=== PATIENT | male | born 1960 | race Caucasian/White ===

== ENCOUNTER 2017-09-14 22:28 | Emergency (ER) | payer MEDICARE, MEDICAID ==
[2017-09-14 22:33] VITALS: BP 145/116
[2017-09-14] MEDS ORDERED: Acetaminophen 325 MG Tab PO ONE (22:48)
--- NOTE | 2017-09-14 23:22 | EDM.PDOC ---
ED HPI GENERAL MEDICAL PROBLEM - General Chief Complaint: Head Injury Stated Complaint: CAME BY AMBULANCE Time Seen by Provider: 09/14/17 22:30 Source of Information: Reports: EMS, Other (C staff aide) History Limitations: Reports: Language Barrier (Patient cognitively impaired and nonverbal) - History of Present Illness INITIAL COMMENTS - FREE TEXT/NARRATIVE: found lying on floor by bed, Staff do not believe there was any loss of consciousness. Staff concerned that did not seem to be walking as well and acting that something hurt so called 911 - Related Data Allergies Allergy/AdvReac Type Severity Reaction Status Date / Time No Known Allergies Allergy Verified 09/14/17 22:37 Home Meds: Home Meds Albuterol [Proventil Neb Soln] 0.63 mg NEB QIDRT PRN 12/12/16 [History] Docusate Sodium [Colace] 100 mg PO BID PRN 12/12/16 [History] Magnesium Hydroxide [Milk of Magnesia] 30 ml PO DAILY PRN 12/12/16 [History] Miconazole Nitrate [Lotrimin AF] 150 gm TP BID PRN 12/12/16 [History] clonazePAM [Clonazepam] 0.5 mg PO DAILY 12/12/16 [History] clonazePAM [Klonopin] 0.75 mg PO BEDTIME 12/12/16 [History] lamoTRIgine [Lamotrigine] 300 mg PO BID 12/12/16 [History] risperiDONE [risperiDONE] 0.25 mg PO TID 12/12/16 [History] Past Medical History - Past Health History Medical/Surgical History: Denies Medical/Surgical History Gastrointestinal History: Reports: Chronic Constipation Neurological History: Reports: Seizure Other Neuro History: devere mental retardation Psychiatric History: Reports: ADHD, Bipolar Social & Family History - Family History Family Medical History: Unobtainable - Tobacco Use Smoking Status *Q: Never Smoker Second Hand Smoke Exposure: No - Caffeine Use Caffeine Use: Reports: None - Recreational Drug Use Recreational Drug Use: No ED ROS GENERAL - Review of Systems Review Of Systems: ROS reveals no pertinent complaints other than HPI. ED EXAM, HEAD INJURY - Physical Exam Exam: See Below Exam Limited By: Language Barrier General Appearance: Alert, No Apparent Distress Head: Atraumatic, Normocephalic Nexus Criteria: No: Posterior, Midline Cervical Tenderness, Altered Level of Consciousness Eyes: Bilateral Eye: EOMI, PERRL Ears: Normal External Exam Nose: Normal Inspection, Normal Mucousa Course - Vital Signs Last Recorded V/S: Last Vital Signs Temp 101.3 F H 09/14/17 23:35 Pulse 122 H 09/14/17 22:28 Resp 20 09/14/17 22:28 BP 145/116 H 09/14/17 22:28 Pulse Ox 93 L 09/14/17 22:28 - Orders/Labs/Meds Meds: Medications Discontinued Medications Generic Name Dose Route Start Last Admin Trade Name Valerie PRN Reason Stop Dose Admin Acetaminophen 650 mg 09/14/17 22:48 09/14/17 22:54 Tylenol PO 09/14/17 22:49 650 mg NOW ONE Administration Phenazopyridine HCl 95 mg 09/14/17 23:26 Urinary Pain Relief PO 09/14/17 23:27 ONETIME ONE Departure - Departure Time of Disposition: 23:19 Disposition: DC/Tfer to [facility] Condition: Good Clinical Impression: Fall from bed Qualifiers: Encounter type: initial encounter Qualified Code(s): W06.XXXA - Fall from bed, initial encounter - Discharge Information Instructions: Head Injury, Adult, [id number] Referrals: PCP,Unobtain [Primary Care Provider] - Forms: ED Department Discharge Additional Instructions: Monitor, follow up if further concerns ambulate with assist. Pelvic and hip were negative for any fracture Tylenol 650mg every 4 hours as needed for discomfort
[2017-09-14] MEDS ORDERED: Phenazopyridine 95 MG Tab PO ONE (23:26)
== END 2017-09-14 23:35 ==
LOC: DL.ED 22:28
DX: R40.4 Transient alteration of awareness (principal); F31.9 Bipolar disorder, unspecified; W06.XXXA Fall from bed, initial encounter
CPT/HCPCS: 72170; 99283; 99284; A9270

== ENCOUNTER 2019-01-14 20:18 | Emergency (ER) | payer MEDICARE, MEDICAID ==
--- NOTE | 2019-01-14 20:33 | EDM.PDOC ---
ED HPI GENERAL MEDICAL PROBLEM - General Stated Complaint: AMBULANCE Time Seen by Provider: 01/14/19 20:30 Source of Information: Reports: Other (caretakers) History Limitations: Reports: Other (mentally c) - History of Present Illness INITIAL COMMENTS - FREE TEXT/NARRATIVE: lead radiation therapist states pt was vomiting and possibly had seizure. - Related Data Allergies Allergy/AdvReac Type Severity Reaction Status Date / Time No Known Allergies Allergy Verified 01/14/19 20:53 Home Meds: Home Meds Albuterol [Proventil Neb Soln] 0.63 mg NEB QIDRT PRN 12/12/16 [History] Docusate Sodium [Colace] 100 mg PO BID PRN 12/12/16 [History] Magnesium Hydroxide [Milk of Magnesia] 30 ml PO DAILY PRN 12/12/16 [History] Miconazole Nitrate [Lotrimin AF] 150 gm TP BID PRN 12/12/16 [History] clonazePAM [Clonazepam] 0.5 mg PO DAILY 12/12/16 [History] clonazePAM [Klonopin] 0.75 mg PO BEDTIME 12/12/16 [History] lamoTRIgine [Lamotrigine] 300 mg PO BID 12/12/16 [History] risperiDONE 0.25 mg PO TID 12/12/16 [History] Past Medical History - Past Health History Medical/Surgical History: Denies Medical/Surgical History Gastrointestinal History: Reports: Chronic Constipation Psychiatric History: Reports: Bipolar Social & Family History - Family History Family Medical History: Unobtainable - Caffeine Use Caffeine Use: Reports: None ED ROS GENERAL - Review of Systems Review Of Systems: ROS reveals no pertinent complaints other than HPI. ED EXAM, GENERAL - Physical Exam Exam: See Below Exam Limited By: Combative/Threatening (mentally C) General Appearance: Alert, Other (mentally C) Eye Exam: Bilateral Eye: PERRL (pupils ess ER @ 4mm) Ears: Hearing Grossly Normal Throat/Mouth: Normal Voice, No Airway Compromise Head: Atraumatic Neck: Non-Tender, Full Range of Motion Respiratory/Chest: No Respiratory Distress Cardiovascular: Regular Rate, Rhythm GI/Abdominal: Soft, Non-Tender Neurological: Alert, Normal Cognition Psychiatric: Anxious Skin Exam: Warm, Dry, Normal Color Lymphatic: No Adenopathy Course - Vital Signs Last Recorded V/S: Last Vital Signs Temp 38.2 C H 01/14/19 21:03 Pulse 127 H 01/14/19 21:03 Resp 20 01/14/19 21:03 BP 163/93 H 01/14/19 21:03 Pulse Ox 95 01/14/19 21:03 - Orders/Labs/Meds Orders: Active Orders 24 hr Category Date Time Status Chest 1V Frontal [CR] Urgent Exams 01/14/19 20:33 Taken CULTURE BLOOD [BC] Stat Lab 01/14/19 20:44 Received Ondansetron [Zofran] Med 01/14/19 21:36 Once 4 mg IV ONETIME ONE Sodium Chloride 0.9% [Normal Saline] 1,000 ml Med 01/14/19 20:45 Active IV ASDIRECTED Medication Orders Sodium Chloride (Normal Saline) 1,000 mls @ 500 mls/hr IV ASDIRECTED OSIEL Last Admin: 01/14/19 21:02 Dose: 500 mls/hr Labs: Laboratory Tests 01/14/19 01/14/19 01/14/19 Range/Units 20:44 20:44 20:44 WBC 7.9 (5.0-10.0) 10^3/uL RBC 4.88 (4.6-6.2) 10^6/uL Hgb 15.3 (14.0-18.0) g/dL Hct 46.1 (40.0-54.0) % MCV 94.5 (80-100) fL MCH 31.4 (27.0-34.0) pg MCHC 33.2 (33.0-35.0) g/dL Plt Count 221 (150-450) 10^3/uL Neut % (Auto) 83.6 H (42.2-75.2) % Lymph % (Auto) 6.7 L (20.5-50.1) % [place] % (Auto) 8.1 H (2-8) % Eos % (Auto) 1.5 (1.0-3.0) % Baso % (Auto) 0.1 (0.0-1.0) % Sodium 135 (135-145) mmol/L Potassium 3.9 (3.6-5.0) mmol/L Chloride 100 L (101-111) mmol/L Carbon Dioxide 25.0 (21.0-31.0) mmol/L Anion Gap 13.9 BUN 18 (7-18) mg/dL Creatinine 0.9 (0.6-1.3) mg/dL Est Cr Clr Drug Dosing TNP Estimated GFR (MDRD) > 60 BUN/Creatinine Ratio 20.00 Glucose 118 H (74-105) mg/dL Lactic Acid 2.1 (0.5-2.2) mmol/L Calcium 8.1 L (8.4-10.2) mg/dl Total Bilirubin 0.7 (0.2-1.0) mg/dL AST 33 (10-42) IU/L ALT 22 (10-60) IU/L Alkaline Phosphatase 71 (42-121) IU/L Total Protein 7.1 (6.7-8.2) g/dl Albumin 3.8 (3.2-5.5) g/dl Globulin 3.3 Albumin/Globulin Ratio 1.15 Meds: Medications Generic Name Dose Route Start Last Admin Trade Name Freq PRN Reason Stop Dose Admin Sodium Chloride 1,000 mls @ 500 mls/hr 01/14/19 20:45 01/14/19 21:02 Normal Saline IV 500 mls/hr ASDIRECTED OSIEL Administration Discontinued Medications Generic Name Dose Route Start Last Admin Trade Name Freq PRN Reason Stop Dose Admin Lorazepam 1 mg 01/14/19 20:34 01/14/19 20:48 Ativan IVPUSH 01/14/19 20:35 1 mg ONETIME ONE Administration - Re-Assessments/Exams Free Text/Narrative Re-Assessment/Exam: 01/14/19 21:38 results discussed with caretakers, will give pt some zofran prior d/c so he can take is night Rx. Departure - Departure Time of Disposition: 21:39 Disposition: Home, Self-Care 01 Condition: Fair Clinical Impression: Gastroenteritis Vomiting Qualifiers: Vomiting type: unspecified Vomiting Intractability: non-intractable Nausea presence: unspecified Qualified Code(s): R11.10 - Vomiting, unspecified - Discharge Information Referrals: PCP,Unobtain [Primary Care Provider] - Additional Instructions: 1) clear liquids for next 24 hours 2) may try BRAT diet if no further vomiting issues 3) follow up at clinic - My Orders Last 24 Hours: My Active Orders 01/14/19 20:33 Chest 1V Frontal [CR] Urgent 01/14/19 20:44 CULTURE BLOOD [BC] Stat 01/14/19 20:45 Sodium Chloride 0.9% [Normal Saline] 1,000 ml IV ASDIRECTED 01/14/19 21:36 Ondansetron [Zofran] 4 mg IV ONETIME ONE - Assessment/Plan Last 24 Hours: My Active Orders 01/14/19 20:33 Chest 1V Frontal [CR] Urgent 01/14/19 20:44 CULTURE BLOOD [BC] Stat 01/14/19 20:45 Sodium Chloride 0.9% [Normal Saline] 1,000 ml IV ASDIRECTED 01/14/19 21:36 Ondansetron [Zofran] 4 mg IV ONETIME ONE
[2019-01-14] MEDS ORDERED: LORazepam 2 MG/ML Syringe IVPUSH ONE (20:34)
[2019-01-14] MEDS ORDERED: Sodium Chloride 0.9% 1,000 ML IV SCH (20:45)
[2019-01-14 21:24] LABS: ANION GAP 13.9; CHLORIDE,CL 100 mmol/L (101-111); SODIUM,NA 135 mmol/L (135-145)
[2019-01-14] MEDS ORDERED: Ondansetron 4 MG/2 ML SDV IV ONE (21:36)
[2019-01-14 21:43] VITALS: BP 163/93
== END 2019-01-14 21:52 | disposition home or self-care (01) ==
LOC: DL.ED 20:18
DX: K21.9 Gastro-esophageal reflux disease without esophagitis (principal); F31.9 Bipolar disorder, unspecified; Z79.899 Other long term (current) drug therapy
CPT/HCPCS: 36415; 71045; 80053; 83605; 85025; 87040; 96361; 96374; 96375; 99284; J2060; J2405; J7030

== ENCOUNTER 2021-05-07 18:29 | Emergency (ER) | payer MEDICARE, MEDICAID ==
--- NOTE | 2021-05-07 19:21 | EDM.PDOC ---
ED HPI GENERAL MEDICAL PROBLEM - General Chief Complaint: Laceration Stated Complaint: CUT ON BY RIGHT EYEBROW Time Seen by Provider: 05/07/21 19:09 Source of Information: Reports: Patient, RN, RN Notes Reviewed History Limitations: Reports: No Limitations - History of Present Illness INITIAL COMMENTS - FREE TEXT/NARRATIVE: Patient is a 61-year-old male who presents to ER with staff with complaint of hitting his head, laceration. Patient is nonverbal, developmentally delayed, lives in a [facility]. Staff states he does not walk very well on his own but did get up out of his wheelchair and took a few steps on his own falling forward and hitting his head on the wall. They state he was not knocked out and he has been acting appropriately since the incident. Staff states tetanus is up-to-date. He does have a laceration vertical at the inner aspect of the right eyebrow. Onset: Today, Sudden - Related Data Allergies Allergy/AdvReac Type Severity Reaction Status Date / Time No Known Allergies Allergy Verified 01/14/19 20:53 Home Meds: Home Meds Albuterol [Proventil Neb Soln] 0.63 mg NEB QIDRT PRN 12/12/16 [History] Docusate Sodium [Colace] 100 mg PO BID PRN 12/12/16 [History] Magnesium Hydroxide [Milk of Magnesia] 30 ml PO DAILY PRN 12/12/16 [History] Miconazole Nitrate [Lotrimin AF] 150 gm TP BID PRN 12/12/16 [History] clonazePAM [Clonazepam] 0.5 mg PO DAILY 12/12/16 [History] clonazePAM [Klonopin] 0.75 mg PO BEDTIME 12/12/16 [History] lamoTRIgine [Lamotrigine] 300 mg PO BID 12/12/16 [History] risperiDONE 0.25 mg PO TID 12/12/16 [History] Past Medical History - Past Health History Medical/Surgical History: Denies Medical/Surgical History Gastrointestinal History: Reports: Chronic Constipation Neurological History: Reports: Seizure Other Neuro History: devere mental retardation Psychiatric History: Reports: Bipolar Social & Family History - Family History Family Medical History: Unobtainable - Caffeine Use Caffeine Use: Reports: None ED ROS GENERAL - Review of Systems Review Of Systems: Comprehensive ROS is negative, except as noted in HPI. ED EXAM, SKIN/RASH Exam: See Below Exam Limited By: Other (Nonverbal, developmentally delayed) General Appearance: Alert, WD/WN, No Apparent Distress, Anxious Eye Exam: Bilateral Eye: EOMI, Normal Inspection Ears: Normal External Exam, Hearing Grossly Normal Nose: Normal Inspection Throat/Mouth: Normal Inspection, Normal Voice, No Airway Compromise Head: Atraumatic, Normocephalic Neck: Normal Inspection, Supple, Non-Tender, Full Range of Motion Respiratory/Chest: No Respiratory Distress, Lungs Clear, Normal Breath Sounds, No Accessory Muscle Use, Chest Non-Tender Cardiovascular: Normal Peripheral Pulses, Regular Rate, Rhythm, No Edema, No Gallop, No JVD, No Murmur, No Rub GI/Abdominal: Normal Bowel Sounds, Soft, Non-Tender (Male) Exam: Deferred Rectal (Males) Exam: Deferred Back Exam: Normal Inspection, Full Range of Motion, NT Extremities: Normal Inspection, Normal Range of Motion Neurological: Alert, Other (Nonverbal) Psychiatric: Anxious, Other (Combative) Skin: Warm, Dry, Normal Color, No Rash, Other (1cm vertical laceration to the inner aspect of the right eyebrow) Location, Skin: Face Lymphatic: No Adenopathy ED SKIN PROCEDURES - Laceration/Wound Repair Right Medial Face Appearance: Subcutaneous, Other (Between the eyes, right inner aspect of the eyebrow, between the eyes) Distal NVT: Neuro & Vascular Intact Skin Prep: Chlorhexidine (Hibiciens) Exploration/Debridement/Repair: Wound Explored, In a Bloodless Field, Explored to Base, No Foreign Material Found Closed with: Dermabond Lac/Wound length In cm: 1 Drain Placement: No Sterile Dressing Applied: None Tetanus Status Addressed: Yes Complications: No Course - Vital Signs Last Recorded V/S: Last Vital Signs Temp 97.3 F 05/07/21 18:50 Pulse 86 05/07/21 18:50 Resp 18 05/07/21 18:50 BP 136/86 05/07/21 18:50 Pulse Ox Departure - Departure Time of Disposition: 19:19 Disposition: Home, Self-Care 01 Condition: Good Clinical Impression: Laceration - Discharge Information *PRESCRIPTION DRUG MONITORING PROGRAM REVIEWED*: No *COPY OF PRESCRIPTION DRUG MONITORING REPORT IN PATIENT DANILO: No Instructions: Laceration Care, Adult, [id number], Sutures, [place], or Adhesive Wound Closure, [id number] Referrals: PCP,None [Primary Care Provider] - Forms: ED Department Discharge Additional Instructions: Try to keep him from picking at the area Monitor for signs of infection Follow up with primary care provider if any problems arise Return to ER with any worsening of problems May use Tylenol as directed for pain Sepsis Event Note (ED) - Focused Exam Vital Signs: Vital Signs Temp Pulse Resp BP 05/07/21 18:50 97.3 F 86 18 136/86
[2021-05-07 19:24] VITALS: BP 136/86; PULSE 86
== END 2021-05-07 19:25 | disposition home or self-care (01) ==
LOC: DL.ED 18:29
DX: S01.81XA Laceration without foreign body of other part of head, initial encounter (principal); R56.9 Unspecified convulsions; Z79.899 Other long term (current) drug therapy; W26.8XXA Contact with other sharp object(s), not elsewhere classified, initial encounter
CPT/HCPCS: 12011; 99282; 99283-25

== ENCOUNTER 2021-09-30 03:07 | Inpatient (IN) | payer MEDICARE, MEDICAID ==
[2021-09-30] MEDS ORDERED: Acetaminophen 650 MG Supp RECTAL STA (03:22)
--- NOTE | 2021-09-30 03:27 | EDM.PDOC ---
ED HPI GENERAL MEDICAL PROBLEM - General Chief Complaint: Neurological Problem Stated Complaint: AMBULANCE Time Seen by Provider: 09/30/21 03:24 Source of Information: Reports: Patient, RN, RN Notes Reviewed History Limitations: Reports: No Limitations - History of Present Illness INITIAL COMMENTS - FREE TEXT/NARRATIVE: Barry is a 61 y/o male with a history of nonverbal cognitive delays and seizures who presents to the ED via [facility] for seizures. Per EMS report, the patient has experienced three seizures this past evening at 2020, 2140, and 0240, lasting approximately 30 seconds to one minute. Upon arrival to this facility the patient is alert with mild respiratory distress, tachypnea in the high 20's with saturations in the mid 70s on RA. No staff from his correction presented with him; unable to contact staff from correction via phone. - Related Data Allergies Allergy/AdvReac Type Severity Reaction Status Date / Time No Known Allergies Allergy Unverified 09/30/21 04:13 Home Meds: Home Meds Docusate Sodium [Colace] 100 mg PO BID 12/12/16 [History] Magnesium Hydroxide [Milk of Magnesia] 30 ml PO Q48H 12/12/16 [History] clonazePAM [Clonazepam] 0.5 mg PO DAILY 12/12/16 [History] clonazePAM [Klonopin] 0.75 mg PO BEDTIME 12/12/16 [History] lamoTRIgine [Lamotrigine] 300 mg PO BID 12/12/16 [History] risperiDONE 0.25 mg PO TID 12/12/16 [History] Amoxicillin/Clavulanate K [Augmentin 875-125 MG] 1 tab PO Q12HR #10 tablet 10/02/21 [Rx] Past Medical History - Past Health History Medical/Surgical History: Denies Medical/Surgical History Gastrointestinal History: Reports: Chronic Constipation Neurological History: Reports: Seizure Other Neuro History: devere mental retardation Psychiatric History: Reports: Bipolar Social & Family History - Family History Family Medical History: Unobtainable - Caffeine Use Caffeine Use: Reports: None ED ROS GENERAL - Review of Systems Review Of Systems: Unable To Obtain (Nonverbal at baseline) Reason Not Obtained: Patient nonverbal at baseline - Physical Exam Exam: See Below Exam Limited By: Language Barrier (Nonverbal) General Appearance: Alert, Mild Distress (Tachypnea) Eye Exam: Bilateral Eye: EOMI, Normal Inspection, PERRL (3mm) Ears: Normal External Exam Nose: Normal Inspection Throat/Mouth: No Airway Compromise. No: Normal Oropharynx (Dry mucous membranes) Head Exam: Atraumatic, Normocephalic Neck: Normal Inspection, Supple, Non-Tender, Full Range of Motion Respiratory/Chest: Rhonchi (Diffuse ), Accessory Muscle Use, Other (Tachypnea). No: Wheezing, Stridor Cardiovascular: Normal Peripheral Pulses, Regular Rate, Rhythm, No Edema, No Gallop, No JVD, No Murmur, No Rub, Tachycardia GI/Abdominal: Normal Bowel Sounds, Soft, No Distention, No Abnormal Bruit, No Mass, Pelvis Stable. No: Guarding, Rigid, Rebound (Male) Exam: Deferred Rectal (Males) Exam: Deferred Neuro Exam (Abbreviated): Alert, Other (Nonverbal at baseline; Moves all extremities approriately) Back Exam: Normal Inspection, Full Range of Motion Extremities: Normal Inspection, Normal Range of Motion, Normal Capillary Refill Psychiatric: Normal Affect Skin Exam: Warm, Dry, Intact, Normal Color, No Rash. No: Cyanosis, Jaundice, Mottled, Pallor Course - Vital Signs Last Recorded V/S: Last Vital Signs Temp 98.0 F 10/02/21 13:02 Pulse 91 10/02/21 13:02 Resp 20 10/02/21 13:02 BP 121/76 10/02/21 13:02 Pulse Ox 92 L 10/02/21 13:02 - Orders/Labs/Meds Labs: Laboratory Tests 09/30/21 09/30/21 09/30/21 Range/Units 03:18 03:35 03:35 WBC 5.5 (5.0-10.0) 10^3/uL RBC 4.02 L (4.6-6.2) 10^6/uL Hgb 12.8 L D (14.0-18.0) g/dL Hct 38.8 L (40.0-54.0) % MCV 96.5 (80-100) fL MCH 31.8 (27.0-34.0) pg MCHC 33.0 (33.0-35.0) g/dL Plt Count 192 (150-450) 10^3/uL Neut % (Auto) 84.7 H (42.2-75.2) % Lymph % (Auto) 6.7 L (20.5-50.1) % Lewis % (Auto) 8.2 H (2-8) % Eos % (Auto) 0.2 L (1.0-3.0) % Baso % (Auto) 0.2 (0.0-1.0) % Sodium 140 (136-145) mmol/L Potassium 3.5 (3.5-5.1) mmol/L Chloride 104 (98-107) mmol/L Carbon Dioxide 29 (21-32) mmol/L Anion Gap 10.5 (7-13) mEq/L BUN 22 H (7-18) mg/dL Creatinine 1.36 H (0.70-1.30) mg/dL Est Cr Clr Drug Dosing TNP Estimated GFR (MDRD) 53 BUN/Creatinine Ratio 16.2 (No establ ref range) Glucose 117 H (70-99) mg/dL Lactic Acid (0.4-2.0) mmol/L Calcium 8.0 L (8.5-10.1) mg/dL Magnesium 2.5 H (1.8-2.4) mg/dL Total Bilirubin 0.5 (0.2-1.0) mg/dL AST 23 (15-37) U/L ALT 22 (16-63) U/L Alkaline Phosphatase 80 (46-116) U/L Troponin I High Sens 37 (<=76) pg/mL C-Reactive Protein 6.4 H (0.0-0.9) mg/dL B-Natriuretic Peptide 41 (0-100) pg/ml Total Protein 6.2 L (6.4-8.2) g/dL Albumin 2.8 L (3.4-5.0) g/dL Globulin 3.4 Albumin/Globulin Ratio 0.82 Procalcitonin ng/mL Urine Color (YELLOW) Urine Appearance (CLEAR) Urine pH (5.0-9.0) Ur Specific Jelm (1.005-1.030) Urine Protein (NEGATIVE) Urine Glucose (UA) (NEGATIVE) Urine Ketones (NEGATIVE) Urine Occult Blood (NEGATIVE) Urine Nitrite (NEGATIVE) Urine Bilirubin (NEGATIVE) Urine Urobilinogen (0.2-1.0) mg/dL Ur Leukocyte Esterase (NEGATIVE) Urine RBC (0-5) /HPF Urine WBC (0-5/HPF) /HPF Ur Epithelial Cells (NOT SEEN) /HPF Urine Bacteria (0-FEW/HPF) /HPF Influenza Type A RNA Negative (NEGATIVE) Influenza Type B RNA Negative (NEGATIVE) SARS-CoV-2 RNA (STANLEY) Negative (NEGATIVE) 09/30/21 09/30/21 09/30/21 Range/Units 03:35 03:35 06:26 WBC (5.0-10.0) 10^3/uL RBC (4.6-6.2) 10^6/uL Hgb (14.0-18.0) g/dL Hct (40.0-54.0) % MCV (80-100) fL MCH (27.0-34.0) pg MCHC (33.0-35.0) g/dL Plt Count (150-450) 10^3/uL Neut % (Auto) (42.2-75.2) % Lymph % (Auto) (20.5-50.1) % Lewis % (Auto) (2-8) % Eos % (Auto) (1.0-3.0) % Baso % (Auto) (0.0-1.0) % Sodium (136-145) mmol/L Potassium (3.5-5.1) mmol/L Chloride (98-107) mmol/L Carbon Dioxide (21-32) mmol/L Anion Gap (7-13) mEq/L BUN (7-18) mg/dL Creatinine (0.70-1.30) mg/dL Est Cr Clr Drug Dosing Estimated GFR (MDRD) BUN/Creatinine Ratio (No establ ref range) Glucose (70-99) mg/dL Lactic Acid 2.7 H* (0.4-2.0) mmol/L Calcium (8.5-10.1) mg/dL Magnesium (1.8-2.4) mg/dL Total Bilirubin (0.2-1.0) mg/dL AST (15-37) U/L ALT (16-63) U/L Alkaline Phosphatase (46-116) U/L Troponin I High Sens (<=76) pg/mL C-Reactive Protein (0.0-0.9) mg/dL B-Natriuretic Peptide (0-100) pg/ml Total Protein (6.4-8.2) g/dL Albumin (3.4-5.0) g/dL Globulin Albumin/Globulin Ratio Procalcitonin 2.90 H ng/mL Urine Color Dark yellow (YELLOW) Urine Appearance Clear (CLEAR) Urine pH 5.5 (5.0-9.0) Ur Specific Jelm 1.020 (1.005-1.030) Urine Protein Negative (NEGATIVE) Urine Glucose (UA) Negative (NEGATIVE) Urine Ketones Negative (NEGATIVE) Urine Occult Blood Trace-intact H (NEGATIVE) Urine Nitrite Negative (NEGATIVE) Urine Bilirubin Negative (NEGATIVE) Urine Urobilinogen 0.2 (0.2-1.0) mg/dL Ur Leukocyte Esterase Negative (NEGATIVE) Urine RBC 0-5 (0-5) /HPF Urine WBC 0-5 (0-5/HPF) /HPF Ur Epithelial Cells Few (NOT SEEN) /HPF Urine Bacteria Not seen (0-FEW/HPF) /HPF Influenza Type A RNA (NEGATIVE) Influenza Type B RNA (NEGATIVE) SARS-CoV-2 RNA (STANLEY) (NEGATIVE) 09/30/21 Range/Units 06:39 WBC (5.0-10.0) 10^3/uL RBC (4.6-6.2) 10^6/uL Hgb (14.0-18.0) g/dL Hct (40.0-54.0) % MCV (80-100) fL MCH (27.0-34.0) pg MCHC (33.0-35.0) g/dL Plt Count (150-450) 10^3/uL Neut % (Auto) (42.2-75.2) % Lymph % (Auto) (20.5-50.1) % Lewis % (Auto) (2-8) % Eos % (Auto) (1.0-3.0) % Baso % (Auto) (0.0-1.0) % Sodium (136-145) mmol/L Potassium (3.5-5.1) mmol/L Chloride (98-107) mmol/L Carbon Dioxide (21-32) mmol/L Anion Gap (7-13) mEq/L BUN (7-18) mg/dL Creatinine (0.70-1.30) mg/dL Est Cr Clr Drug Dosing Estimated GFR (MDRD) BUN/Creatinine Ratio (No establ ref range) Glucose (70-99) mg/dL Lactic Acid 1.2 (0.4-2.0) mmol/L Calcium (8.5-10.1) mg/dL Magnesium (1.8-2.4) mg/dL Total Bilirubin (0.2-1.0) mg/dL AST (15-37) U/L ALT (16-63) U/L Alkaline Phosphatase (46-116) U/L Troponin I High Sens (<=76) pg/mL C-Reactive Protein (0.0-0.9) mg/dL B-Natriuretic Peptide (0-100) pg/ml Total Protein (6.4-8.2) g/dL Albumin (3.4-5.0) g/dL Globulin Albumin/Globulin Ratio Procalcitonin ng/mL Urine Color (YELLOW) Urine Appearance (CLEAR) Urine pH (5.0-9.0) Ur Specific Jelm (1.005-1.030) Urine Protein (NEGATIVE) Urine Glucose (UA) (NEGATIVE) Urine Ketones (NEGATIVE) Urine Occult Blood (NEGATIVE) Urine Nitrite (NEGATIVE) Urine Bilirubin (NEGATIVE) Urine Urobilinogen (0.2-1.0) mg/dL Ur Leukocyte Esterase (NEGATIVE) Urine RBC (0-5) /HPF Urine WBC (0-5/HPF) /HPF Ur Epithelial Cells (NOT SEEN) /HPF Urine Bacteria (0-FEW/HPF) /HPF Influenza Type A RNA (NEGATIVE) Influenza Type B RNA (NEGATIVE) SARS-CoV-2 RNA (STANLEY) (NEGATIVE) Meds: Medications Discontinued Medications Generic Name Dose Route Start Last Admin Trade Name Freq PRN Reason Stop Dose Admin Acetaminophen 650 mg 09/30/21 03:22 09/30/21 03:37 Acetaminophen 650 Mg Supp RECTAL 09/30/21 03:23 650 mg NOW STA Administration Acetaminophen 650 mg 10/01/21 02:11 10/01/21 02:34 Acetaminophen 650 Mg Supp RECTAL 650 mg Q4H PRN Administration Fever Albuterol/Ipratropium 3 ml 09/30/21 11:07 Albuterol/Ipratropium 3.0-0.5 Mg/3 Ml Neb Soln NEB Q4H PRN shortness of breath/wheezing Amoxicillin/Clavulanate Potassium 1 tab 10/02/21 09:00 10/02/21 08:53 Amoxicillin/Clavulanate K 875-125 Mg Tab PO 1 tab Q12HR OSIEL Administration Clonazepam 0.5 mg 09/30/21 14:00 10/02/21 08:53 Clonazepam 0.5 Mg Tab PO 0.5 mg DAILY OSIEL Administration Clonazepam 0.75 mg 09/30/21 21:00 10/01/21 20:52 Clonazepam 0.5 Mg Tab PO 0.75 mg BEDTIME OSIEL Administration Enoxaparin Sodium 40 mg 09/30/21 12:00 10/02/21 08:52 Enoxaparin 40 Mg/0.4 Ml Syringe SUBCUT 40 mg DAILY OSIEL Administration Sodium Chloride 1,000 mls @ 999 mls/hr 09/30/21 03:34 09/30/21 03:37 Normal Saline IV 09/30/21 04:34 999 mls/hr .BOLUS ONE Administration Lactated Ringer's 1,000 mls @ 125 mls/hr 09/30/21 11:15 Ringers, Lactated IV 09/30/21 19:14 ASDIRECTED OSIEL Piperacillin Sod/Tazobactam 100 mls @ 200 mls/hr 09/30/21 12:00 10/02/21 11:45 Sod 4.5 gm/ Sodium Chloride IV Not Given Q6HR OSIEL Lamotrigine 300 mg 09/30/21 14:00 10/02/21 08:54 Lamotrigine 100 Mg Tab PO 300 mg BID OSIEL Administration Lorazepam 2 mg 09/30/21 11:14 Lorazepam 2 Mg/Ml Sdv IVPUSH ONETIME PRN Seizures Ondansetron HCl 4 mg 09/30/21 11:07 Ondansetron 4 Mg/2 Ml Sdv IVPUSH Q6H PRN Nausea/Vomiting Polyethylene Glycol 17 gm 09/30/21 11:07 Polyethylene Glycol 3350 Powder 17 Gm Packet PO DAILY PRN Constipation Risperidone 0.25 mg 09/30/21 14:00 10/02/21 08:53 Risperidone 0.5 Mg Tab PO 0.25 mg TID OSIEL Administration Sodium Chloride 10 ml 09/30/21 11:07 09/30/21 18:41 Sodium Chloride 0.9% 10 Ml Syringe FLUSH 10 ml ASDIRECTED PRN Administration Keep Vein Open - Radiology Interpretation Free Text/Narrative:: [facility] [place] [facility] Final Radiology Report Call: [phone] assistance Online chat: [email or web address] Name: BARRY SPEARS Age: 61Years M Date: 09/30/2021 SSN: -- : [id number] Study: CR CHEST 1V FRONTAL Requesting Physician: Marion Reyna Images: 1 Addl Studies: Provided Clinical History: Coarse rhonchi diffuse; Hypoxia; Fever 103 Contrast: Contrast Medium: Contrast Amount: Contrast Method: Page 1 of 2 PROCEDURE INFORMATION: Exam: XR Chest Exam date and time: 09/30/2021 4:28 AM Age: 61 years old Clinical indication: Other: Coarse rhonchi diffuse; Hypoxia; Fever 103 TECHNIQUE: Imaging protocol: XR of the chest. Views: 1 view. COMPARISON: CR Chest 1V Frontal 01/14/2019 8:42 PM FINDINGS: Lungs: Interval appearance of patchy airspace opacities throughout the right lung, with more central than peripheral positioning. No definite interval airspace disease in the left lung. Pleural spaces: Still no pneumothorax or apparent pleural fluid. Heart/Mediastinum: Still no cardiomegaly. Vasculature: Continued aortic elongation. 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 No significant change in the slight S-shaped scoliosis. Continued flattening of some of the vertebral bodies. Old left rib fractures, with interval healing of these fractures not excluded. Soft tissues: Interval mass effect along the right upper heart margin and the expected area of the right margin of the ascending aorta. IMPRESSION: 1. Interval appearance of patchy airspace disease in the right lung consistent with pneumonia. 2. Interval mass effect in the right mediastinum, with an ascending aortic aneu rysm or other lesion not differentiated. Follow-up chest CT with IV contrast recommended. Other findings detailed above. Thank you for allowing us to participate in the care of your patient. Dictated and Authenticated by: Joana Goncalves MD 09/30/2021 5:57 AM Central Time ([place] & [place]) - Re-Assessments/Exams Free Text/Narrative Re-Assessment/Exam: 09/30/21 Several attempts to contact correction staff made. Case discussed with Dr. Mosley who accepted patient to this facility for pneumonia. ED staff and hospital supervision to continue to try to contact correction staff and guardian. Departure - Departure Time of Disposition: 07:40 Disposition: Admitted As Inpatient 66 Clinical Impression: Pneumonia Qualifiers: Pneumonia type: due to unspecified organism Laterality: right Lung location: unspecified part of lung Qualified Code(s): J18.9 - Pneumonia, unspecified organism - Discharge Information
[2021-09-30] MEDS ORDERED: Sodium Chloride 0.9% 1,000 ML IV ONE (03:34)
[2021-09-30 04:02] LABS: CORONAVIRUS COVID-19 NAA NEGATIVE (NEGATIVE)
[2021-09-30 04:07] LABS: ANION GAP 10.5 mEq/L (7-13); CHLORIDE,CL 104 mmol/L (98-107); SODIUM,NA 140 mmol/L (136-145)
--- NOTE | 2021-09-30 05:58 | CR ---
PROCEDURE INFORMATION: Exam: XR Chest Exam date and time: 09/30/2021 4:28 AM Age: 61 years old Clinical indication: Other: Coarse rhonchi diffuse; Hypoxia; Fever 103 TECHNIQUE: Imaging protocol: XR of the chest. Views: 1 view. COMPARISON: CR Chest 1V Frontal 01/14/2019 8:42 PM FINDINGS: Lungs: Interval appearance of patchy airspace opacities throughout the right lung, with more central than peripheral positioning. No definite interval airspace disease in the left lung. Pleural spaces: Still no pneumothorax or apparent pleural fluid. Heart/Mediastinum: Still no cardiomegaly. Vasculature: Continued aortic elongation. 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 No significant change in the slight S-shaped scoliosis. Continued flattening of some of the vertebral bodies. Old left rib fractures, with interval healing of these fractures not excluded. Soft tissues: Interval mass effect along the right upper heart margin and the expected area of the right margin of the ascending aorta. IMPRESSION: 1. Interval appearance of patchy airspace disease in the right lung consistent with pneumonia. 2. Interval mass effect in the right mediastinum, with an ascending aortic aneurysm or other lesion not differentiated. Follow-up chest CT with IV contrast recommended. Other findings detailed above.
--- NOTE | 2021-09-30 11:02 | PCM.HP ---
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 Upon arrival to the ED he was alert with mild respiratory distress, tachypnea in the high 20's with saturations in the mid 70s on RA. He did not tolerate nasal canula so blow by was used at 2L with saturations in the high 90s. CXR revealed patchy airspace opacities throughout the right lung, greatest in the middle lobe. His WBC was WNL. He did have an elevated temp and mildly elevated lactic acid. procalcitonin was ordered and sent out. he was admitted to the hospital for further evaluation and treatment. - Related Data Allergies/Adverse Reactions: Allergies Allergy/AdvReac Type Severity Reaction Status Date / Time No Known Allergies Allergy Unverified 09/30/21 04:13 Home Medications: Home Meds Albuterol [Proventil Neb Soln] 0.63 mg NEB QIDRT PRN 12/12/16 [History] Docusate Sodium [Colace] 100 mg PO BID PRN 12/12/16 [History] Magnesium Hydroxide [Milk of Magnesia] 30 ml PO ASDIRECTED PRN 12/12/16 [History] Miconazole Nitrate [Lotrimin AF] 150 gm TP BID PRN 12/12/16 [History] clonazePAM [Clonazepam] 0.5 mg PO DAILY 12/12/16 [History] clonazePAM [Klonopin] 0.75 mg PO BEDTIME 12/12/16 [History] lamoTRIgine [Lamotrigine] 300 mg PO BID 12/12/16 [History] risperiDONE 0.25 mg PO TID 12/12/16 [History] Past Medical History - Past Health History Medical/Surgical History: Denies Medical/Surgical History Other Cardiovascular History: Unknown Other Respiratory History: Unknown Gastrointestinal History: Reports: Chronic Constipation Other Gastrointestinal History: Unknown Other Genitourinary History: Unknown Other Musculoskeletal History: Unknown Neurological History: Reports: Seizure Other Neuro History: devere mental retardation Psychiatric History: Reports: Bipolar Other Endocrine/Metabolic History: Unknown Other Hematologic History: Unknown Other Dermatologic History: Unknown - Infectious Disease History Other Infectious Disease History: Unknown - Past Surgical History Other HEENT Surgeries/Procedures: Unknown Other Cardiovascular Surgeries/Procedures: Unknown Other Respiratory Surgeries/Procedures: Unknown Other GI Surgeries/Procedures: Unknown Other Male Surgeries/Procedures: Unknown Other Endocrine Surgeries/Procedures: Unknown Other Musculoskeletal Surgeries/Procedures:: Unknown Social & Family History - Family History Family Medical History: No Pertinent Family History - Tobacco Use Tobacco Use Status *Q: Never Tobacco User - Caffeine Use Caffeine Use: Reports: None - Alcohol Use Alcohol Use History: No - Recreational Drug Use Recreational Drug Use: No - Sexual History Sexual History: Reports: None - Living Situation & Occupation Living situation: Reports: Extended Care Facility Occupation: Disabled Social History Comment: dad and sister are co- guardians H&P Review of Systems - Review of Systems: Review Of Systems: Unable To Obtain Reason Not Obtained: non verbal Exam - Exam Exam: See Below - Vital Signs Vital Signs: Last Vital Signs Temp 99.3 F 09/30/21 09:30 Pulse 95 09/30/21 07:49 Resp 21 H 09/30/21 05:56 BP 128/72 09/30/21 07:49 Pulse Ox 89 L 09/30/21 09:30 Weight: 137 lb 14.4 oz - Exam Quality Assessment: Supplemental Oxygen (blow by with saturations 88%), DVT Prophylaxis. No: Urinary Catheter, Skin Breakdown General: Alert, Other (currently baseline). No: Mild Distress HEENT: EOMI, Pupils Equal. No: Scleral Icterus Neck: Supple, Full Range of Motion Lungs: Clear to Auscultation. No: Decreased Breath Sounds, Crackles, Rales, Stridor, Wheezing Cardiovascular: Regular Rate, Regular Rhythm. No: Systolic Murmur GI/Abdominal Exam: Soft, Non-Tender (Male) Exam: Deferred Rectal (Males) Exam: Deferred Back Exam: Normal Inspection Extremities: Normal Range of Motion, Other (mild contractures present in bilateral upper and lower extremities). No: Mottled, Pallor, Redness Skin: Warm, Dry, Ecchymosis (scattered ecchymosis 2/2 seizure. posterior aspect of RUE and LUE) Neuro Extensive - Mental Status: Alert, Normal Mood/Affect, Other (baseline) Neuro Extensive - Motor, Sensory, Reflexes: Other (nonverbal at baseline) Psychiatric: Normal Affect, Normal Mood - Patient Data Lab Results Last 24 hrs: Laboratory Results - last 24 hr 09/30/21 09/30/21 09/30/21 Range/Units 03:18 03:35 03:35 WBC 5.5 (5.0-10.0) 10^3/uL RBC 4.02 L (4.6-6.2) 10^6/uL Hgb 12.8 L D (14.0-18.0) g/dL Hct 38.8 L (40.0-54.0) % MCV 96.5 (80-100) fL MCH 31.8 (27.0-34.0) pg MCHC 33.0 (33.0-35.0) g/dL Plt Count 192 (150-450) 10^3/uL Neut % (Auto) 84.7 H (42.2-75.2) % Lymph % (Auto) 6.7 L (20.5-50.1) % [place] % (Auto) 8.2 H (2-8) % Eos % (Auto) 0.2 L (1.0-3.0) % Baso % (Auto) 0.2 (0.0-1.0) % Sodium 140 (136-145) mmol/L Potassium 3.5 (3.5-5.1) mmol/L Chloride 104 (98-107) mmol/L Carbon Dioxide 29 (21-32) mmol/L Anion Gap 10.5 (7-13) mEq/L BUN 22 H (7-18) mg/dL Creatinine 1.36 H (0.70-1.30) mg/dL Est Cr Clr Drug Dosing TNP Estimated GFR (MDRD) 53 BUN/Creatinine Ratio 16.2 (No establ ref range) Glucose 117 H (70-99) mg/dL Lactic Acid (0.4-2.0) mmol/L Calcium 8.0 L (8.5-10.1) mg/dL Magnesium 2.5 H (1.8-2.4) mg/dL Total Bilirubin 0.5 (0.2-1.0) mg/dL AST 23 (15-37) U/L ALT 22 (16-63) U/L Alkaline Phosphatase 80 (46-116) U/L Troponin I High Sens 37 (<=76) pg/mL C-Reactive Protein 6.4 H (0.0-0.9) mg/dL B-Natriuretic Peptide 41 (0-100) pg/ml Total Protein 6.2 L (6.4-8.2) g/dL Albumin 2.8 L (3.4-5.0) g/dL Globulin 3.4 Albumin/Globulin Ratio 0.82 Urine Color (YELLOW) Urine Appearance (CLEAR) Urine pH (5.0-9.0) Ur Specific [place] (1.005-1.030) Urine Protein (NEGATIVE) Urine Glucose (UA) (NEGATIVE) Urine Ketones (NEGATIVE) Urine Occult Blood (NEGATIVE) Urine Nitrite (NEGATIVE) Urine Bilirubin (NEGATIVE) Urine Urobilinogen (0.2-1.0) mg/dL Ur Leukocyte Esterase (NEGATIVE) Urine RBC (0-5) /HPF Urine WBC (0-5/HPF) /HPF Ur Epithelial Cells (NOT SEEN) /HPF Urine Bacteria (0-FEW/HPF) /HPF Influenza Type A RNA Negative (NEGATIVE) Influenza Type B RNA Negative (NEGATIVE) SARS-CoV-2 RNA (STANLEY) Negative (NEGATIVE) 09/30/21 09/30/21 09/30/21 Range/Units 03:35 06:26 06:39 WBC (5.0-10.0) 10^3/uL RBC (4.6-6.2) 10^6/uL Hgb (14.0-18.0) g/dL Hct (40.0-54.0) % MCV (80-100) fL MCH (27.0-34.0) pg MCHC (33.0-35.0) g/dL Plt Count (150-450) 10^3/uL Neut % (Auto) (42.2-75.2) % Lymph % (Auto) (20.5-50.1) % [place] % (Auto) (2-8) % Eos % (Auto) (1.0-3.0) % Baso % (Auto) (0.0-1.0) % Sodium (136-145) mmol/L Potassium (3.5-5.1) mmol/L Chloride (98-107) mmol/L Carbon Dioxide (21-32) mmol/L Anion Gap (7-13) mEq/L BUN (7-18) mg/dL Creatinine (0.70-1.30) mg/dL Est Cr Clr Drug Dosing Estimated GFR (MDRD) BUN/Creatinine Ratio (No establ ref range) Glucose (70-99) mg/dL Lactic Acid 2.7 H* 1.2 (0.4-2.0) mmol/L Calcium (8.5-10.1) mg/dL Magnesium (1.8-2.4) mg/dL Total Bilirubin (0.2-1.0) mg/dL AST (15-37) U/L ALT (16-63) U/L Alkaline Phosphatase (46-116) U/L Troponin I High Sens (<=76) pg/mL C-Reactive Protein (0.0-0.9) mg/dL B-Natriuretic Peptide (0-100) pg/ml Total Protein (6.4-8.2) g/dL Albumin (3.4-5.0) g/dL Globulin Albumin/Globulin Ratio Urine Color Dark yellow (YELLOW) Urine Appearance Clear (CLEAR) Urine pH 5.5 (5.0-9.0) Ur Specific [place] 1.020 (1.005-1.030) Urine Protein Negative (NEGATIVE) Urine Glucose (UA) Negative (NEGATIVE) Urine Ketones Negative (NEGATIVE) Urine Occult Blood Trace-intact H (NEGATIVE) Urine Nitrite Negative (NEGATIVE) Urine Bilirubin Negative (NEGATIVE) Urine Urobilinogen 0.2 (0.2-1.0) mg/dL Ur Leukocyte Esterase Negative (NEGATIVE) Urine RBC 0-5 (0-5) /HPF Urine WBC 0-5 (0-5/HPF) /HPF Ur Epithelial Cells Few (NOT SEEN) /HPF Urine Bacteria Not seen (0-FEW/HPF) /HPF Influenza Type A RNA (NEGATIVE) Influenza Type B RNA (NEGATIVE) SARS-CoV-2 RNA (STANLEY) (NEGATIVE) Result Diagrams: 09/30/21 03:35 09/30/21 03:35 Abiodun Results Last 24 hrs: Microbiology 09/30/21 03:35 Anaerobic Blood Culture - Final Blood - Arm, Left Problem List Initiated/Reviewed/Updated: Yes Orders Last 24hrs: Active Orders 24 hr Category Date Time Status Admission Diagnosis [ADT] Stat ADT 09/30/21 06:40 Ordered Admission Status [Patient Status] [ADT] Routine ADT 09/30/21 06:40 Active EKG Documentation Completion [RC] STAT Care 09/30/21 03:23 Active CULTURE BLOOD [BC] Stat Lab 09/30/21 03:35 Results CULTURE BLOOD [BC] Stat Lab 09/30/21 06:39 Received PROCALCITONIN [REF] Stat Lab 09/30/21 03:35 Received Blood Culture x2 Reflex Set [OM.PC] Stat Oth 09/30/21 06:18 Ordered Assessment/Plan Comment:: ACUTE PROBLEMS: seizure activity aspiration PNA vs chemical pneumonitis 2/2 above - currently requiring 2L blow by to maintain O2 sats >88% Plan: - continue regular diet of mechanical soft solids and thin liquids. discussed risk of continued aspiration with guardian and decision was made that benefit outweighs risk. - wean oxygen as tolerated - IV zosyn today. de-escalate to PO abx at discharge - No speech therapy consult given above discussion Seizure disorder: Breakthrough seizure - breakthrough seizure reported x3 plan: - continue home lamotrigine - seizure precautions with PRN IV ativan for seizure activity Chronic conditions: - nonverbal at baseline - chronic constipation: PRN miralax Code status: DNR. changed with consent of father (Nai Good Sr) who is his guardian after lengthy code status/dnr discussion DVT prophylaxis: subQ lovenox
[2021-09-30] MEDS ORDERED: Ondansetron 4 MG/2 ML SDV IVPUSH PRN (11:07)
[2021-09-30] MEDS ORDERED: Albuterol/Ipratropium 3.0-0.5 MG/3 ML Neb Soln NEB PRN (11:07)
[2021-09-30] MEDS ORDERED: Sodium Chloride 0.9% 10 ML Syringe FLUSH PRN (11:07)
[2021-09-30] MEDS ORDERED: Polyethylene Glycol 3350 Powder 17 GM Packet PO PRN (11:07)
[2021-09-30] MEDS ORDERED: LORazepam 2 MG/ML SDV IVPUSH PRN (11:14)
[2021-09-30] MEDS ORDERED: Lactated Ringers 1,000 ML IV SCH (11:15)
[2021-09-30] MEDS: Enoxaparin 40 MG/0.4 ML Syringe SUBCUT SCH (12:54)
[2021-09-30] MEDS: Piperacillin/Tazobactam 4.5 GM in Sodium Chloride 0.9% 100 ML IV SCH ×2 (12:58→18:41)
[2021-09-30] MEDS: risperiDONE 0.5 MG Tab PO SCH ×2 (14:15→20:33)
[2021-09-30] MEDS: lamoTRIgine 100 MG Tab PO SCH ×2 (14:15→20:33)
[2021-09-30] MEDS: ClonazePAM 0.5 MG Tab PO SCH ×2 (14:15→20:32)
[2021-10-01] MEDS: Piperacillin/Tazobactam 4.5 GM in Sodium Chloride 0.9% 100 ML IV SCH ×5 (00:36→23:52)
[2021-10-01] MEDS ORDERED: Acetaminophen 650 MG Supp RECTAL PRN (02:11)
[2021-10-01 06:56] LABS: ANION GAP 9.7 mEq/L (7-13); CHLORIDE,CL 109 mmol/L (98-107); SODIUM,NA 144 mmol/L (136-145)
[2021-10-01] MEDS: risperiDONE 0.5 MG Tab PO SCH ×3 (09:38→20:53)
[2021-10-01] MEDS: lamoTRIgine 100 MG Tab PO SCH ×2 (09:38→20:51)
[2021-10-01] MEDS: Enoxaparin 40 MG/0.4 ML Syringe SUBCUT SCH (09:38)
[2021-10-01] MEDS: ClonazePAM 0.5 MG Tab PO SCH ×2 (09:39→20:52)
--- NOTE | 2021-10-01 13:58 | PCM.PN ---
- General Info Date of Service: 10/01/21 Admission Dx/Problem (Free Text): Admission Diagnosis/Problem Admission Diagnosis/Problem Aspiration pneumonia, acute respiratory failure with hypoxia Subjective Update: appears comfortable and at baseline. - Review of Systems Systems Review Comment:: unable to complete as pt is non verbal - Patient Data Vitals - Most Recent: Last Vital Signs Temp 98.8 F 10/01/21 12:47 Pulse 81 10/01/21 12:47 Resp 20 10/01/21 12:47 BP 108/57 L 10/01/21 12:47 Pulse Ox 92 L 10/01/21 12:47 Weight - Most Recent: 137 lb 14.4 oz I&O - Last 24 Hours: Intake & Output 09/30/21 10/01/21 10/01/21 22:59 06:59 14:59 Intake Total 90 Balance 90 Lab Results Last 24 Hours: Laboratory Results - last 24 hr 09/30/21 10/01/21 10/01/21 Range/Units 03:35 05:45 05:45 WBC 10.4 H (5.0-10.0) 10^3/uL RBC 3.85 L (4.6-6.2) 10^6/uL Hgb 12.2 L (14.0-18.0) g/dL Hct 38.0 L (40.0-54.0) % MCV 98.7 (80-100) fL MCH 31.7 (27.0-34.0) pg MCHC 32.1 L (33.0-35.0) g/dL Plt Count 218 (150-450) 10^3/uL Sodium 144 (136-145) mmol/L Potassium 3.7 (3.5-5.1) mmol/L Chloride 109 H (98-107) mmol/L Carbon Dioxide 29 (21-32) mmol/L Anion Gap 9.7 (7-13) mEq/L BUN 15 (7-18) mg/dL Creatinine 1.10 (0.70-1.30) mg/dL Est Cr Clr Drug Dosing TNP Estimated GFR (MDRD) > 60 Glucose 89 (70-99) mg/dL Calcium 7.8 L (8.5-10.1) mg/dL Procalcitonin 2.90 H ng/mL Abiodun Results Last 24 Hours: Microbiology 09/30/21 06:39 Aerobic Blood Culture - Preliminary Blood - Arm, Right NO GROWTH AFTER 1 DAY Anaerobic Blood Culture - Preliminary NO GROWTH AFTER 1 DAY 09/30/21 03:35 Aerobic Blood Culture - Preliminary Blood - Arm, Left NO GROWTH AFTER 1 DAY Anaerobic Blood Culture - Final Med Orders - Current: Current Medications Acetaminophen (Acetaminophen 650 Mg Supp) 650 mg RECTAL Q4H PRN PRN Reason: Fever Last Admin: 10/01/21 02:34 Dose: 650 mg Documented by: Albuterol/Ipratropium (Albuterol/Ipratropium 3.0-0.5 Mg/3 Ml Neb Soln) 3 ml NEB Q4H PRN PRN Reason: shortness of breath/wheezing Clonazepam (Clonazepam 0.5 Mg Tab) 0.5 mg PO DAILY [facility] Last Admin: 10/01/21 09:39 Dose: 0.5 mg Documented by: Clonazepam (Clonazepam 0.5 Mg Tab) 0.75 mg PO BEDTIME [facility] Last Admin: 09/30/21 20:32 Dose: 0.75 mg Documented by: Enoxaparin Sodium (Enoxaparin 40 Mg/0.4 Ml Syringe) 40 mg SUBCUT DAILY [facility] Last Admin: 10/01/21 09:38 Dose: 40 mg Documented by: Piperacillin Sod/Tazobactam (Sod 4.5 gm/ Sodium Chloride) 100 mls @ 200 mls/hr IV Q6HR [facility] Last Admin: 10/01/21 12:03 Dose: 200 mls/hr Documented by: Lamotrigine (Lamotrigine 100 Mg Tab) 300 mg PO BID [facility] Last Admin: 10/01/21 09:38 Dose: 300 mg Documented by: Lorazepam (Lorazepam 2 Mg/Ml Sdv) 2 mg IVPUSH ONETIME PRN PRN Reason: Seizures Ondansetron HCl (Ondansetron 4 Mg/2 Ml Sdv) 4 mg IVPUSH Q6H PRN PRN Reason: Nausea/Vomiting Polyethylene Glycol (Polyethylene Glycol 3350 Powder 17 Gm Packet) 17 gm PO DAILY PRN PRN Reason: Constipation Risperidone (Risperidone 0.5 Mg Tab) 0.25 mg PO TID [facility] Last Admin: 10/01/21 09:38 Dose: 0.25 mg Documented by: Sodium Chloride (Sodium Chloride 0.9% 10 Ml Syringe) 10 ml FLUSH ASDIRECTED PRN PRN Reason: Keep Vein Open Last Admin: 09/30/21 18:41 Dose: 10 ml Documented by: Discontinued Medications Acetaminophen (Acetaminophen 650 Mg Supp) 650 mg RECTAL NOW STA Stop: 09/30/21 03:23 Last Admin: 09/30/21 03:37 Dose: 650 mg Documented by: Sodium Chloride (Normal Saline) 1,000 mls @ 999 mls/hr IV .BOLUS ONE Stop: 09/30/21 04:34 Last Admin: 09/30/21 03:37 Dose: 999 mls/hr Documented by: Lactated Ringer's (Ringers, Lactated) 1,000 mls @ 125 mls/hr IV ASDIRECTED OSIEL Stop: 09/30/21 19:14 - Exam Quality Assessment: DVT Prophylaxis. No: Supplemental Oxygen, Skin Breakdown General: Alert. No: Oriented HEENT: EOMI, Mucous Membr. Moist/[place] Lungs: Clear to Auscultation, Normal Respiratory Effort. No: Rales, Rhonchi, Wheezing Cardiovascular: Regular Rate, Regular Rhythm, No Murmurs GI/Abdominal Exam: Soft, No Distention (Male) Exam: Deferred Extremities: Non-Tender, No Pedal Edema, Other (chronic contractures of BUE and BLE present) Skin: Warm, Dry Neurological: No New Focal Deficit, Other (currently baseline) Psy/Mental Status: Alert, Normal Affect, Normal Mood - Patient Data Lab Results Last 24 hrs: Laboratory Results - last 24 hr 09/30/21 10/01/21 10/01/21 Range/Units 03:35 05:45 05:45 WBC 10.4 H (5.0-10.0) 10^3/uL RBC 3.85 L (4.6-6.2) 10^6/uL Hgb 12.2 L (14.0-18.0) g/dL Hct 38.0 L (40.0-54.0) % MCV 98.7 (80-100) fL MCH 31.7 (27.0-34.0) pg MCHC 32.1 L (33.0-35.0) g/dL Plt Count 218 (150-450) 10^3/uL Sodium 144 (136-145) mmol/L Potassium 3.7 (3.5-5.1) mmol/L Chloride 109 H (98-107) mmol/L Carbon Dioxide 29 (21-32) mmol/L Anion Gap 9.7 (7-13) mEq/L BUN 15 (7-18) mg/dL Creatinine 1.10 (0.70-1.30) mg/dL Est Cr Clr Drug Dosing TNP Estimated GFR (MDRD) > 60 Glucose 89 (70-99) mg/dL Calcium 7.8 L (8.5-10.1) mg/dL Procalcitonin 2.90 H ng/mL Result Diagrams: 10/01/21 05:45 10/01/21 05:45 Abiodun Results Last 24 hrs: Microbiology 09/30/21 06:39 Aerobic Blood Culture - Preliminary Blood - Arm, Right NO GROWTH AFTER 1 DAY Anaerobic Blood Culture - Preliminary NO GROWTH AFTER 1 DAY 09/30/21 03:35 Aerobic Blood Culture - Preliminary Blood - Arm, Left NO GROWTH AFTER 1 DAY Anaerobic Blood Culture - Final Sepsis Event Note - Evaluation Sepsis Screening Result: No Definite Risk - Focused Exam Vital Signs: Vital Signs Temp Temp Pulse Resp BP Pulse Ox 10/01/21 12:47 98.8 F 81 20 108/57 L 92 L 10/01/21 08:46 98.6 F 84 20 103/56 L 91 L 10/01/21 04:00 95 10/01/21 02:34 101.7 F H - Problem List Review Problem List Initiated/Reviewed/Updated: Yes - My Orders Last 24 Hours: My Active Orders 09/30/21 13:52 Dietary Supplements [RC] TIDMEALS 09/30/21 14:00 ClonazePAM [KlonoPIN] 0.5 mg PO DAILY lamoTRIgine 300 mg PO BID risperiDONE [RisperiDAL] 0.25 mg PO TID 09/30/21 21:00 ClonazePAM [KlonoPIN] 0.75 mg PO BEDTIME 10/01/21 02:11 Acetaminophen [Tylenol] 650 mg RECTAL Q4H PRN 10/02/21 06:00 CREATININE W/GFR [CHEM] Routine - Plan Plan:: ACUTE PROBLEMS: seizure activity aspiration PNA vs chemical pneumonitis 2/2 above - required 2L blow by to maintain O2 sats >88% on admit. currently room air - procalcitonin 2.9 Plan: - continue regular diet of mechanical soft solids and thin liquids. discussed risk of continued aspiration with guardian and decision was made that benefit outweighs risk. - IV zosyn today. de-escalate to PO abx at discharge/after 48 hour results of blood cultures Seizure disorder: Breakthrough seizure - breakthrough seizure reported x3 plan: - continue home lamotrigine - seizure precautions with PRN IV ativan for seizure activity Chronic conditions: - nonverbal at baseline - chronic constipation: PRN miralax Code status: DNR. changed with consent of father (aNi Good Sr) who is his guardian after lengthy code status/dnr discussion DVT prophylaxis: subQ lovenox MDM/ interval history: procalcitonin elevated to 2.9. tmax 101.9 overnight. following results of blood cultures and continuing on empiric zosyn. can de- escalate at discharge depending on final culture results. will remain inpatient and on IV zosyn until cultures are negative at 48 hours. seizure free since admit. patients sister shiva updated via telephone [phone]. Pt will likely return to home facility tomorrow. n oother acute concerns. he is currently baseline.
--- NOTE | 2021-10-02 06:02 | PCM.PN ---
- General Info Date of Service: 10/02/21 Admission Dx/Problem (Free Text): Admission Diagnosis/Problem Admission Diagnosis/Problem Aspiration pneumonia, acute respiratory failure with hypoxia Subjective Update: Appears comfortable and at baseline. Non-verbal at baseline. Pulled out IV last night. Unable to perform review of systems due to patient's mental status. - Patient Data Vitals - Most Recent: Last Vital Signs Temp 98.8 F 10/02/21 00:00 Pulse 106 H 10/01/21 19:58 Resp 20 10/01/21 19:58 BP 106/68 10/01/21 19:58 Pulse Ox 90 L 10/01/21 19:58 Weight - Most Recent: 137 lb 14.4 oz Lab Results Last 24 Hours: Laboratory Results - last 24 hr 10/01/21 10/01/21 Range/Units 05:45 05:45 WBC 10.4 H (5.0-10.0) 10^3/uL RBC 3.85 L (4.6-6.2) 10^6/uL Hgb 12.2 L (14.0-18.0) g/dL Hct 38.0 L (40.0-54.0) % MCV 98.7 (80-100) fL MCH 31.7 (27.0-34.0) pg MCHC 32.1 L (33.0-35.0) g/dL Plt Count 218 (150-450) 10^3/uL Sodium 144 (136-145) mmol/L Potassium 3.7 (3.5-5.1) mmol/L Chloride 109 H (98-107) mmol/L Carbon Dioxide 29 (21-32) mmol/L Anion Gap 9.7 (7-13) mEq/L BUN 15 (7-18) mg/dL Creatinine 1.10 (0.70-1.30) mg/dL Est Cr Clr Drug Dosing TNP Estimated GFR (MDRD) > 60 Glucose 89 (70-99) mg/dL Calcium 7.8 L (8.5-10.1) mg/dL Abiodun Results Last 24 Hours: Microbiology 09/30/21 06:39 Aerobic Blood Culture - Preliminary Blood - Arm, Right NO GROWTH AFTER 1 DAY Anaerobic Blood Culture - Preliminary NO GROWTH AFTER 1 DAY 09/30/21 03:35 Aerobic Blood Culture - Preliminary Blood - Arm, Left NO GROWTH AFTER 1 DAY Anaerobic Blood Culture - Final Med Orders - Current: Current Medications Acetaminophen (Acetaminophen 650 Mg Supp) 650 mg RECTAL Q4H PRN PRN Reason: Fever Last Admin: 10/01/21 02:34 Dose: 650 mg Documented by: Albuterol/Ipratropium (Albuterol/Ipratropium 3.0-0.5 Mg/3 Ml Neb Soln) 3 ml NEB Q4H PRN PRN Reason: shortness of breath/wheezing Clonazepam (Clonazepam 0.5 Mg Tab) 0.5 mg PO DAILY [facility] Last Admin: 10/01/21 09:39 Dose: 0.5 mg Documented by: Clonazepam (Clonazepam 0.5 Mg Tab) 0.75 mg PO BEDTIME [facility] Last Admin: 10/01/21 20:52 Dose: 0.75 mg Documented by: Enoxaparin Sodium (Enoxaparin 40 Mg/0.4 Ml Syringe) 40 mg SUBCUT DAILY [facility] Last Admin: 10/01/21 09:38 Dose: 40 mg Documented by: Piperacillin Sod/Tazobactam (Sod 4.5 gm/ Sodium Chloride) 100 mls @ 200 mls/hr IV Q6HR [facility] Last Admin: 10/01/21 23:52 Dose: 200 mls/hr Documented by: Lamotrigine (Lamotrigine 100 Mg Tab) 300 mg PO BID [facility] Last Admin: 10/01/21 20:51 Dose: 300 mg Documented by: Lorazepam (Lorazepam 2 Mg/Ml Sdv) 2 mg IVPUSH ONETIME PRN PRN Reason: Seizures Ondansetron HCl (Ondansetron 4 Mg/2 Ml Sdv) 4 mg IVPUSH Q6H PRN PRN Reason: Nausea/Vomiting Polyethylene Glycol (Polyethylene Glycol 3350 Powder 17 Gm Packet) 17 gm PO DAILY PRN PRN Reason: Constipation Risperidone (Risperidone 0.5 Mg Tab) 0.25 mg PO TID [facility] Last Admin: 10/01/21 20:53 Dose: 0.25 mg Documented by: Sodium Chloride (Sodium Chloride 0.9% 10 Ml Syringe) 10 ml FLUSH ASDIRECTED PRN PRN Reason: Keep Vein Open Last Admin: 09/30/21 18:41 Dose: 10 ml Documented by: Discontinued Medications Acetaminophen (Acetaminophen 650 Mg Supp) 650 mg RECTAL NOW STA Stop: 09/30/21 03:23 Last Admin: 09/30/21 03:37 Dose: 650 mg Documented by: Sodium Chloride (Normal Saline) 1,000 mls @ 999 mls/hr IV .BOLUS ONE Stop: 09/30/21 04:34 Last Admin: 09/30/21 03:37 Dose: 999 mls/hr Documented by: Lactated Ringer's (Ringers, Lactated) 1,000 mls @ 125 mls/hr IV ASDIRECTED [facility] Stop: 09/30/21 19:14 - Exam General: Other (non-verbal - pleasant - alert) HEENT: Pupils Equal Neck: Supple Lungs: Decreased Breath Sounds Cardiovascular: Regular Rate, Regular Rhythm GI/Abdominal Exam: Normal Bowel Sounds Peripheral Pulses: 2+: Radial (L), Radial (R) Skin: Warm, Dry Neurological: No New Focal Deficit Psy/Mental Status: Alert - Patient Data Lab Results Last 24 hrs: Laboratory Results - last 24 hr 10/01/21 10/01/21 Range/Units 05:45 05:45 WBC 10.4 H (5.0-10.0) 10^3/uL RBC 3.85 L (4.6-6.2) 10^6/uL Hgb 12.2 L (14.0-18.0) g/dL Hct 38.0 L (40.0-54.0) % MCV 98.7 (80-100) fL MCH 31.7 (27.0-34.0) pg MCHC 32.1 L (33.0-35.0) g/dL Plt Count 218 (150-450) 10^3/uL Sodium 144 (136-145) mmol/L Potassium 3.7 (3.5-5.1) mmol/L Chloride 109 H (98-107) mmol/L Carbon Dioxide 29 (21-32) mmol/L Anion Gap 9.7 (7-13) mEq/L BUN 15 (7-18) mg/dL Creatinine 1.10 (0.70-1.30) mg/dL Est Cr Clr Drug Dosing TNP Estimated GFR (MDRD) > 60 Glucose 89 (70-99) mg/dL Calcium 7.8 L (8.5-10.1) mg/dL Result Diagrams: 10/02/21 06:04 10/02/21 06:04 Abiodun Results Last 24 hrs: Microbiology 09/30/21 06:39 Aerobic Blood Culture - Preliminary Blood - Arm, Right NO GROWTH AFTER 1 DAY Anaerobic Blood Culture - Preliminary NO GROWTH AFTER 1 DAY 09/30/21 03:35 Aerobic Blood Culture - Preliminary Blood - Arm, Left NO GROWTH AFTER 1 DAY Anaerobic Blood Culture - Final Sepsis Event Note - Evaluation Sepsis Screening Result: No Definite Risk - Focused Exam Vital Signs: Vital Signs Temp Pulse Resp BP Pulse Ox 10/02/21 00:00 98.8 F 10/01/21 19:58 98.4 F 106 H 20 106/68 90 L - Problem List & Annotations (1) Aspiration pneumonia SNOMED Code(s): 380650523 Code(s): J69.0 - PNEUMONITIS DUE TO INHALATION OF FOOD AND VOMIT Status: Acute Current Visit: Yes (2) Gastroenteritis SNOMED Code(s): 52328320 Code(s): K52.9 - NONINFECTIVE GASTROENTERITIS AND COLITIS, UNSPECIFIED Status: Acute Current Visit: No (3) Vomiting SNOMED Code(s): 121736513 Code(s): R11.10 - VOMITING, UNSPECIFIED Status: Acute Current Visit: No Qualifiers: Vomiting type: unspecified Nausea presence: unspecified - Problem List Review Problem List Initiated/Reviewed/Updated: Yes - Plan Plan:: ACUTE PROBLEMS: Seizure activity aspiration PNA vs chemical pneumonitis 2/2 above - required 2L blow by to maintain O2 sats >88% on admit. currently room air Plan: - continue regular diet of mechanical soft solids and thin liquids. discussed risk of continued aspiration with guardian and decision was made that benefit outweighs risk. - IV zosyn - deescalate to augmentin PO today for 5 additional days of treatment Seizure disorder: Breakthrough seizure - breakthrough seizure reported x3 earlier in stay - no further seizures reported - continue home lamotrigine - seizure precautions with PRN IV ativan for seizure activity Chronic conditions: - nonverbal at baseline - chronic constipation: PRN miralax Code status: DNR. changed with consent of father (Nai Good Sr) who is his guardian after lengthy code status/dnr discussion DVT prophylaxis: subQ lovenox Patients sister Oly updated via telephone [phone]. Pt stable to return to facility.
[2021-10-02] MEDS: Piperacillin/Tazobactam 4.5 GM in Sodium Chloride 0.9% 100 ML IV SCH ×2 (06:31→11:45)
[2021-10-02 06:53] LABS: CHLORIDE,CL 108 mmol/L (98-107); SODIUM,NA 145 mmol/L (136-145)
[2021-10-02] MEDS: Enoxaparin 40 MG/0.4 ML Syringe SUBCUT SCH (08:52)
[2021-10-02] MEDS: risperiDONE 0.5 MG Tab PO SCH (08:53)
[2021-10-02] MEDS: ClonazePAM 0.5 MG Tab PO SCH (08:53)
[2021-10-02] MEDS: lamoTRIgine 100 MG Tab PO SCH (08:54)
[2021-10-02] MEDS ORDERED: Amoxicillin/Clavulanate K 875-125 MG Tab PO SCH (09:00)
--- NOTE | 2021-10-02 10:40 | PCM.DCSUM1 ---
Discharge Summary - Hospital Course Free Text/Narrative:: Nai is a 61 y/o male with a history of nonverbal cognitive delays and unspecified seizure disorder who presents to the ED via [facility] clinical rn liaison 09/29/21 with staff reports of seizures x3 the previous evening at 2020, 2140, and 0240, lasting approximately 30 seconds to one minute. Upon arrival to the ED he was alert with mild respiratory distress, tachypnea in the high 20's with saturations in the mid 70s on RA. He did not tolerate nasal canula so blow by was used at 2L with saturations in the high 90s. CXR revealed patchy airspace opacities throughout the right lung, greatest in the middle lobe. His WBC was WNL. He did have an elevated temp and mildly elevated lactic acid. procalcitonin was ordered and sent out. he was admitted to the hospital for further evaluation and treatment. Patient was treated with IV zosyn. Blood cultures were negative for growth at 48 hours. Patient was able to be weaned off of oxygen and maintained on room air for >24 hours. Patient was non-verbal but continued to be alert and pleasant. Laboratory values were stable. Patient did have recurrent seizures treated with IV benzodiazepines. Patient had no recurrent seizures for greater than 24 hours prior to discharge. Believe the cause of his recurrent seizures was due to the aspiration event and aspiration pneumonia. Patient had no further aspiration events. Patient did pull out his IV on hospital day 2 and was transitioned to p.o. Augmentin which she will continue for a 5-day course. Patient was medically stable for discharge and was discharged back to his facility. Recommend follow-up with PCP. Had a prolonged discussion with cleve duran's sister about further follow-ups including speech therapy and recommended initially starting with a PCP follow-up. - Discharge Data Discharge Date: 10/02/21 Discharge Disposition: DC/Tfer to Long-Term Care 63 Condition: Good - Referral to Home Health Primary Care Physician: PCP None - Discharge Diagnosis/Problem(s) (1) Aspiration pneumonia SNOMED Code(s): 310631727 ICD Code: J69.0 - PNEUMONITIS DUE TO INHALATION OF FOOD AND VOMIT Status: Acute Current Visit: Yes (2) Gastroenteritis SNOMED Code(s): 15653376 ICD Code: K52.9 - NONINFECTIVE GASTROENTERITIS AND COLITIS, UNSPECIFIED Status: Acute Current Visit: No (3) Vomiting SNOMED Code(s): 774896538 ICD Code: R11.10 - VOMITING, UNSPECIFIED Status: Acute Current Visit: No Qualifiers: Vomiting type: unspecified Nausea presence: unspecified - Patient Instructions Diet, Other: mechanical soft diet - aspiration precautions Activity: No Lifting Over 20 Pounds - Discharge Plan *PRESCRIPTION DRUG MONITORING PROGRAM REVIEWED*: Not Applicable *COPY OF PRESCRIPTION DRUG MONITORING REPORT IN PATIENT DANILO: Not Applicable Prescriptions/Med Rec: Amoxicillin/Clavulanate K [Augmentin 875-125 MG] 1 tab PO Q12HR #10 tablet Home Medications: Home Meds Docusate Sodium [Colace] 100 mg PO BID 12/12/16 [History] Magnesium Hydroxide [Milk of Magnesia] 30 ml PO Q48H 12/12/16 [History] clonazePAM [Clonazepam] 0.5 mg PO DAILY 12/12/16 [History] clonazePAM [Klonopin] 0.75 mg PO BEDTIME 12/12/16 [History] lamoTRIgine [Lamotrigine] 300 mg PO BID 12/12/16 [History] risperiDONE 0.25 mg PO TID 12/12/16 [History] Amoxicillin/Clavulanate K [Augmentin 875-125 MG] 1 tab PO Q12HR #10 tablet 10/02/21 [Rx] Referrals: Kenyatta Pa NP [Ordering Only Provider] - - Discharge Summary/Plan Comment DC Time >30 min.: Yes Total # of Minutes for Discharge Time: 30 minutes - Patient Data Vitals - Most Recent: Last Vital Signs Temp 97.8 F 10/02/21 07:57 Pulse 94 10/02/21 07:57 Resp 20 10/02/21 07:57 BP 122/76 10/02/21 07:57 Pulse Ox 92 L 10/02/21 07:57 Weight - Most Recent: 137 lb 14.4 oz Lab Results - Last 24 hrs: Laboratory Results - last 24 hr 10/02/21 10/02/21 Range/Units 06:04 06:04 WBC 8.2 (5.0-10.0) 10^3/uL RBC 4.00 L (4.6-6.2) 10^6/uL Hgb 12.4 L (14.0-18.0) g/dL Hct 39.2 L (40.0-54.0) % MCV 98.0 (80-100) fL MCH 31.0 (27.0-34.0) pg MCHC 31.6 L (33.0-35.0) g/dL Plt Count 267 (150-450) 10^3/uL Sodium 145 (136-145) mmol/L Potassium 4.0 (3.5-5.1) mmol/L Chloride 108 H (98-107) mmol/L Carbon Dioxide 30 (21-32) mmol/L Anion Gap 11.0 (7-13) mEq/L BUN 12 (7-18) mg/dL Creatinine 0.96 (0.70-1.30) mg/dL Est Cr Clr Drug Dosing 67.66 mL/min Estimated GFR (MDRD) > 60 Glucose 92 (70-99) mg/dL Calcium 8.0 L (8.5-10.1) mg/dL SABAS Results - Last 24 hrs: Microbiology 09/30/21 06:39 Aerobic Blood Culture - Preliminary Blood - Arm, Right NO GROWTH AFTER 2 DAYS Anaerobic Blood Culture - Preliminary NO GROWTH AFTER 2 DAYS 09/30/21 03:35 Aerobic Blood Culture - Preliminary Blood - Arm, Left NO GROWTH AFTER 2 DAYS Anaerobic Blood Culture - Final Med Orders - Current: Current Medications Acetaminophen (Acetaminophen 650 Mg Supp) 650 mg RECTAL Q4H PRN PRN Reason: Fever Last Admin: 10/01/21 02:34 Dose: 650 mg Documented by: Albuterol/Ipratropium (Albuterol/Ipratropium 3.0-0.5 Mg/3 Ml Neb Soln) 3 ml NEB Q4H PRN PRN Reason: shortness of breath/wheezing Amoxicillin/Clavulanate Potassium (Amoxicillin/Clavulanate K 875-125 Mg Tab) 1 tab PO Q12HR [facility] Last Admin: 10/02/21 08:53 Dose: 1 tab Documented by: Clonazepam (Clonazepam 0.5 Mg Tab) 0.5 mg PO DAILY [facility] Last Admin: 10/02/21 08:53 Dose: 0.5 mg Documented by: Clonazepam (Clonazepam 0.5 Mg Tab) 0.75 mg PO BEDTIME [facility] Last Admin: 10/01/21 20:52 Dose: 0.75 mg Documented by: Enoxaparin Sodium (Enoxaparin 40 Mg/0.4 Ml Syringe) 40 mg SUBCUT DAILY [facility] Last Admin: 10/02/21 08:52 Dose: 40 mg Documented by: Piperacillin Sod/Tazobactam (Sod 4.5 gm/ Sodium Chloride) 100 mls @ 200 mls/hr IV Q6HR [facility] Last Admin: 10/02/21 06:31 Dose: Not Given Documented by: Lamotrigine (Lamotrigine 100 Mg Tab) 300 mg PO BID [facility] Last Admin: 10/02/21 08:54 Dose: 300 mg Documented by: Lorazepam (Lorazepam 2 Mg/Ml Sdv) 2 mg IVPUSH ONETIME PRN PRN Reason: Seizures Ondansetron HCl (Ondansetron 4 Mg/2 Ml Sdv) 4 mg IVPUSH Q6H PRN PRN Reason: Nausea/Vomiting Polyethylene Glycol (Polyethylene Glycol 3350 Powder 17 Gm Packet) 17 gm PO DAILY PRN PRN Reason: Constipation Risperidone (Risperidone 0.5 Mg Tab) 0.25 mg PO TID [facility] Last Admin: 10/02/21 08:53 Dose: 0.25 mg Documented by: Sodium Chloride (Sodium Chloride 0.9% 10 Ml Syringe) 10 ml FLUSH ASDIRECTED PRN PRN Reason: Keep Vein Open Last Admin: 09/30/21 18:41 Dose: 10 ml Documented by: Discontinued Medications Acetaminophen (Acetaminophen 650 Mg Supp) 650 mg RECTAL NOW STA Stop: 09/30/21 03:23 Last Admin: 09/30/21 03:37 Dose: 650 mg Documented by: Sodium Chloride (Normal Saline) 1,000 mls @ 999 mls/hr IV .BOLUS ONE Stop: 09/30/21 04:34 Last Admin: 09/30/21 03:37 Dose: 999 mls/hr Documented by: Lactated Ringer's (Ringers, Lactated) 1,000 mls @ 125 mls/hr IV ASDIRECTED [facility] Stop: 09/30/21 19:14
[2021-10-02 13:02] VITALS: BP 121/76; PULSE 91
== END 2021-10-02 13:30 | DRG 177 ==
LOC: DL.ED 03:07 → DL.MS 07:28
PROVIDERS: ADMIT Hospitalist; ATTEND Hospitalist
DX: J18.9 Pneumonia, unspecified organism (principal); J69.0 Pneumonitis due to inhalation of food and vomit; G40.909 Epilepsy, unspecified, not intractable, without status epilepticus; F72 Severe intellectual disabilities; J96.01 Acute respiratory failure with hypoxia; Z79.899 Other long term (current) drug therapy; K52.9 Noninfective gastroenteritis and colitis, unspecified; Z66 Do not resuscitate; K59.09 Other constipation; Z20.822 Contact with and (suspected) exposure to COVID-19; R56.9 Unspecified convulsions; F31.9 Bipolar disorder, unspecified
CPT/HCPCS: 0240U; 36415; 71045; 80048; 80053; 81001; 83605; 83735; 83880; 84145; 84484; 85025; 85027; 86140; 87040; A9270-GY; J1650; J2543; J7030

== ENCOUNTER 2022-01-28 18:34 | Emergency (ER) | payer MEDICARE, MEDICAID ==
[2022-01-28] MEDS ORDERED: Midazolam 1 MG/ML 2 ML SDV IVPUSH ONE (18:54)
[2022-01-28 19:31] VITALS: BP 139/96; PULSE 78
[2022-01-28 19:32] LABS: ANION GAP 13.3 mEq/L (7-13); CHLORIDE,CL 102 mmol/L (98-107); SODIUM,NA 138 mmol/L (136-145)
== END 2022-01-28 20:22 | disposition home or self-care (01) ==
LOC: DL.ED 18:34
DX: K59.00 Constipation, unspecified (principal); Z79.899 Other long term (current) drug therapy
CPT/HCPCS: 36415; 71250; 74176; 80053; 83605; 85025; 96374; 99284; J2250

== ENCOUNTER 2022-04-11 06:51 | Day surgery (SDC) | payer MEDICARE, MEDICAID ==
[~2022-04-11 06:51] MED LIST: Dextrose 5%-0.45% NaCl 1,000 ML IV SCH; Sodium Chloride 0.9% 10 ML Syringe FLUSH PRN
[2022-04-11] MEDS ORDERED: Lactated Ringers 1,000 ML IV SCH (07:30)
[2022-04-11] MEDS ORDERED: Midazolam 1 MG/ML 2 ML SDV ONE ×2 (07:38→08:15)
[2022-04-11] MEDS ORDERED: Succinylcholine 200 MG/10 ML MDV ONE (07:59)
[2022-04-11] MEDS ORDERED: Sodium Chloride 0.9% 10 ML Syringe FLUSH SCH (09:00)
[2022-04-11] MEDS ORDERED: Lidocaine 1% 5 ML VIAL ONE (09:30)
[2022-04-11 11:02] VITALS: BP 107/79; PULSE 72
== END 2022-04-11 11:15 ==
LOC: DL.ENDO 06:51
PROVIDERS: ATTEND Internal Medicine Gastroenterology
DX: K59.09 Other constipation (principal); G40.909 Epilepsy, unspecified, not intractable, without status epilepticus; F31.9 Bipolar disorder, unspecified; F79 Unspecified intellectual disabilities; Z91.048 Other nonmedicinal substance allergy status; Z98.890 Other specified postprocedural states; Z79.899 Other long term (current) drug therapy; Z53.09 Procedure and treatment not carried out because of other contraindication; Z20.822 Contact with and (suspected) exposure to COVID-19
CPT/HCPCS: 00840; J7120; U0002; J0330

== ENCOUNTER 2023-03-06 10:06 | Inpatient (IN) | payer MEDICARE, MEDICAID ==
[2023-03-06] MEDS ORDERED: Ondansetron 4 MG/2 ML SDV IVPUSH PRN (11:59)
[2023-03-06] MEDS ORDERED: Albuterol/Ipratropium 3.0-0.5 MG/3 ML Neb Soln NEB PRN ×2 (11:59→12:04)
[2023-03-06] MEDS ORDERED: Acetaminophen 650 MG Supp RECTAL PRN (11:59)
[2023-03-06] MEDS ORDERED: Bisacodyl 5 MG Tab PO PRN (11:59)
[2023-03-06] MEDS ORDERED: Albuterol 0.083% 2.5 MG/3 ML Neb Soln NEB PRN ×2 (11:59→12:04)
[2023-03-06] MEDS ORDERED: Docusate Sodium 100 MG Cap PO PRN (11:59)
[2023-03-06] MEDS ORDERED: Acetaminophen 325 MG Tab PO PRN (11:59)
[2023-03-06] MEDS ORDERED: Sodium Chloride 0.9% 1,000 ML IV SCH (12:00)
[2023-03-06] MEDS ORDERED: Non-Formulary Medication 1 Each (Guaifenesin/Dextromethorphan [Mucinex Dm Er 600-30 Mg Tab PO PRN (12:04)
[2023-03-06] MEDS ORDERED: MICONAZOLE NITRATE 71 GM TOP PRN (12:04)
[2023-03-06] MEDS: cefTRIAXone 2 GM Vial IVPUSH SCH (14:27)
[2023-03-06] MEDS: risperiDONE 0.5 MG Tab PO SCH ×2 (14:27→23:22)
[2023-03-06 15:10] LABS: CORONAVIRUS COVID-19 NAA NEGATIVE (NEGATIVE); INFLUENZA A NAA NEGATIVE (NEGATIVE); INFLUENZA B NAA NEGATIVE (NEGATIVE)
[2023-03-06] MEDS: Lactulose Soln 10 GM/15 ML 30 ML UD Cup PO SCH ×2 (19:22→23:20)
[2023-03-06] MEDS: lamoTRIgine 100 MG Tab PO SCH ×2 (19:22→23:21)
[2023-03-06] MEDS: ClonazePAM 0.5 MG Tab PO SCH ×2 (19:23→23:20)
[2023-03-06] MEDS: Psyllium 0.52 GM Cap PO SCH ×2 (19:23→23:21)
[2023-03-06] MEDS: QUEtiapine 25 MG Tab PO PRN (19:23)
[2023-03-06] MEDS: guaiFENesin 600 MG Tab.ER PO SCH ×2 (19:24→23:21)
[2023-03-06] MEDS: Triamcinolone Acetonide 0.1% Oint 15 GM Tube TOP SCH ×2 (19:24→23:22)
[2023-03-06] MEDS ORDERED: Non-Formulary Medication 1 Each (Lanolin/Mineral Oil [Eucerin Original Lotion] 250 ML Loti TOP SCH (21:00)
[2023-03-07 06:25] LABS: BASOPHILS PERCENT AUTO 0.2 % (0.0-1.0); HEMATOCRIT 39.6 % (40.0-54.0); HEMOGLOBIN 12.7 g/dL (14.0-18.0); LYMPHOCYTES PERCENT AUTO 34.4 % (20.5-50.1); MEAN CORPUSCULAR HEMOGLOBIN 31.3 pg (27.0-34.0); MEAN CORPUSCULAR HGB CONC 32.1 g/dL (33.0-35.0); MEAN CORPUSCULAR VOLUME 97.5 fL (80-100); MONOCYTES PERCENT AUTO 17.5 % (2-8); NEUTROPHILS PERCENT AUTO 40.9 % (42.2-75.2); PLATELET COUNT,PLT 219 10^3/uL (150-450); RED BLOOD CELL COUNT 4.06 10^6/uL (4.6-6.2); WHITE BLOOD CELL COUNT,WBC 5.7 10^3/uL (5.0-10.0)
[2023-03-07 06:29] LABS: CALCIUM 8.3 mg/dL (8.5-10.1); CREATININE 0.84 mg/dL (0.70-1.30); EST CRCL DRUG DOSING (CG) 82.7 mL/min
[2023-03-07] MEDS: Enoxaparin 40 MG/0.4 ML Syringe SUBCUT SCH (08:06)
[2023-03-07] MEDS: Triamcinolone Acetonide 0.1% Oint 15 GM Tube TOP SCH ×2 (08:06→20:22)
[2023-03-07] MEDS: predniSONE 20 MG Tab PO SCH (08:11)
[2023-03-07] MEDS: guaiFENesin 600 MG Tab.ER PO SCH ×2 (08:11→20:06)
[2023-03-07] MEDS: lamoTRIgine 100 MG Tab PO SCH ×2 (08:11→20:07)
[2023-03-07] MEDS: ClonazePAM 0.5 MG Tab PO SCH ×2 (08:11→20:06)
[2023-03-07] MEDS: Lactulose Soln 10 GM/15 ML 30 ML UD Cup PO SCH ×2 (08:11→20:05)
[2023-03-07] MEDS: Psyllium 0.52 GM Cap PO SCH ×2 (08:11→20:07)
[2023-03-07] MEDS: risperiDONE 0.5 MG Tab PO SCH ×4 (08:11→20:07)
[2023-03-07] MEDS: Polyethylene Glycol 3350 Powder 17 GM Packet PO SCH (08:11)
[2023-03-07] MEDS: cefTRIAXone 2 GM Vial IVPUSH SCH (12:54)
[2023-03-07] MEDS: QUEtiapine 25 MG Tab PO PRN (20:07)
[2023-03-08 06:23] LABS: BASOPHILS PERCENT AUTO 0.2 % (0.0-1.0); EOSINOPHILS PERCENT AUTO 0.7 % (1.0-3.0); HEMATOCRIT 36.4 % (40.0-54.0); HEMOGLOBIN 12.3 g/dL (14.0-18.0); LYMPHOCYTES PERCENT AUTO 17.4 % (20.5-50.1); MEAN CORPUSCULAR HEMOGLOBIN 32.8 pg (27.0-34.0); MEAN CORPUSCULAR HGB CONC 33.8 g/dL (33.0-35.0); MEAN CORPUSCULAR VOLUME 97.1 fL (80-100); MONOCYTES PERCENT AUTO 11.6 % (2-8); NEUTROPHILS PERCENT AUTO 70.1 % (42.2-75.2); PLATELET COUNT,PLT 265 10^3/uL (150-450); RED BLOOD CELL COUNT 3.75 10^6/uL (4.6-6.2); WHITE BLOOD CELL COUNT,WBC 8.6 10^3/uL (5.0-10.0)
[2023-03-08 06:40] LABS: ANION GAP 9.4 mEq/L (7-13); CALCIUM 8.3 mg/dL (8.5-10.1); CREATININE 0.7 mg/dL (0.70-1.30); EST CRCL DRUG DOSING (CG) 99.24 mL/min; POTASSIUM,K 4.4 mmol/L (3.5-5.1)
[2023-03-08] MEDS: predniSONE 20 MG Tab PO SCH (08:18)
[2023-03-08] MEDS: risperiDONE 0.5 MG Tab PO SCH (08:19)
[2023-03-08] MEDS: Psyllium 0.52 GM Cap PO SCH (08:19)
[2023-03-08] MEDS: ClonazePAM 0.5 MG Tab PO SCH (08:19)
[2023-03-08] MEDS: Lactulose Soln 10 GM/15 ML 30 ML UD Cup PO SCH (08:31)
[2023-03-08] MEDS: lamoTRIgine 100 MG Tab PO SCH (08:31)
[2023-03-08] MEDS: Polyethylene Glycol 3350 Powder 17 GM Packet PO SCH (08:33)
[2023-03-08] MEDS: Enoxaparin 40 MG/0.4 ML Syringe SUBCUT SCH (08:33)
[2023-03-08] MEDS: guaiFENesin 600 MG Tab.ER PO SCH (08:33)
[2023-03-08] MEDS: Triamcinolone Acetonide 0.1% Oint 15 GM Tube TOP SCH ×2 (08:43→12:17)
[2023-03-08 11:33] VITALS: BP 148/80; PULSE 76
[2023-03-08] MEDS: cefTRIAXone 2 GM Vial IVPUSH SCH (12:03)
== END 2023-03-08 13:30 | disposition home or self-care (01) | DRG 194 ==
LOC: UNDOADMIN 10:06 → DL.MS 10:06
PROVIDERS: ADMIT Internal Medicine; ATTEND Internal Medicine
DX: J18.9 Pneumonia, unspecified organism (principal); J98.11 Atelectasis; F31.9 Bipolar disorder, unspecified; F79 Unspecified intellectual disabilities; J40 Bronchitis, not specified as acute or chronic; G40.909 Epilepsy, unspecified, not intractable, without status epilepticus; K59.09 Other constipation; F90.9 Attention-deficit hyperactivity disorder, unspecified type; Z20.822 Contact with and (suspected) exposure to COVID-19; Z79.899 Other long term (current) drug therapy
CPT/HCPCS: 0240U; 36415; 71045; 71250; 80048; 80202; 85025; 87040; 99222; 99232; 99239; A9270-GY; J0696; J1650; J3370; J7030; J7050; J7512

== ENCOUNTER 2023-04-28 23:21 | Emergency (ER) | payer MEDICARE, MEDICAID | END 2023-04-29 01:23 | disposition EXP | LOC: DL.ED 23:21 | DX: Z86.16 Personal history of COVID-19 (principal) | CPT/HCPCS: 31500; 92950; 99285; 99285-25 ==